=== PATIENT | male | born 1980 | race Caucasian/White ===

== ENCOUNTER 2018-02-14 14:37 | Inpatient (IN) ==
[2018-02-14 16:10] LABS: Basophils # 0.1 10*3/uL (0.0-0.2); Basophils % 0.5 % (0.0-0.8); Eosinophils % 0.2 % (0.00-10.9); Hematocrit 43.2 VOL% (42.0-52.0); Hemoglobin 15.3 GM/DL (14.0-18.0); Immature Granulocytes % 0.8 %; Immature Granulocytes Absolute 0.09 #; Lymphocytes # 3.3 10*3/uL (1.4-4.0); Mean Corpuscular HGB Conc 35.4 GM/DL (32-36); Mean Corpuscular Hemoglobin 32 PG (27-34); Mean Corpuscular Volume 90.8 FL (87-102); Mean Platelet Volume 9.2 FL (9.6-12.0); Monocytes # 0.8 10*3/uL (0.11-0.8); Neutrophils # 6.7 10*3/uL (1.4-7.4); Neutrophils % 61.5 % (38.7-73.9); Platelet Count 356 T/CUMM (130-400); Red Blood Count 4.76 MC/CUMM (3.8-5.5)
[2018-02-14 16:25] LABS: Albumin 3.9 G/DL (3.4-5.0); Bilirubin,Total 0.5 MG/DL (0.2-1.0); Calcium 9.4 MG/DL (8.5-10.1); Osmolality,Calculated 280.4 MOS/KG (273-304); Total Protein 7.8 G/DL (6.4-8.3)
[2018-02-14] MEDS ORDERED: ONDANSETRON 4 MG/2 ML VIAL IV PRN (16:34)
[2018-02-14] MEDS ORDERED: DEXTROSE 50% 25 GM/50 ML VIAL IV PRN (16:34)
[2018-02-14] MEDS ORDERED: GLUCAGON 1 MG VIAL IM PRN (16:34)
[2018-02-14] MEDS ORDERED: LORazepam 2 MG/1 ML VIAL IV STA (16:38)
[2018-02-14] MEDS ORDERED: POTASSIUM CHLORIDE 20 MEQ TABLET PO STA (16:48)
[2018-02-14 17:24] LABS: Apearance,Urine CLEAR (Clear); Bilirubin,Urine Negative (Negative); Blood, Urine Negative (Negative); Glucose,Urine (UA) Negative (Negative); Hyaline Casts,Urine 1 /LPF (0-3); Ketones,Urine Negative (Negative); Mucus,Urine Occasional /LPF (Occasional); Nitrite,Urine Negative (Negative); Protein,Urine Negative; RBC,Urine 2 /HPF (0-4); Squamous Epithelial Cell,Urine Occasional /HPF (0-10); Urine Color Yellow (Yellow); Urine Specific Gravity 1.015 (1.001-1.035); Urine Urobilinogen < 2.0 EU/DL (0.2-1.0); WBC,Urine 2 /HPF (0-6)
[2018-02-14 17:29] LABS: Folate > 24.0 NG/ML (5.4-24.0); Vitamin B12 769 PG/ML (211-911)
[2018-02-14] MEDS ORDERED: LORazepam 2 MG/1 ML VIAL ONE (18:40)
[2018-02-14] MEDS ORDERED: POTASSIUM CHLORIDE 20 MEQ TABLET PO ONE (18:40)
[2018-02-14] MEDS: metFORMIN 500 MG TABLET PO SCH (20:57)
[2018-02-14] MEDS: PIOGLITAZONE 15 MG TABLET PO SCH (20:58)
[2018-02-14] MEDS: glipiZIDE 10 MG TABLET PO SCH (20:58)
[2018-02-14] MEDS: GABAPENTIN 300 MG CAPSULE PO SCH (20:59)
[2018-02-14] MEDS: CARVEDILOL 25 MG TABLET PO SCH (20:59)
[2018-02-14] MEDS: OXcarbazepine 300 MG TABLET PO SCH (21:00)
[2018-02-14] MEDS ORDERED: HydrOXYzine PAMOATE 50 MG CAPSULE PO SCH (21:00)
[2018-02-14] MEDS: ENOXAPARIN 40 MG/0.4 ML SYRINGE SUBCUT SCH (21:52)
[2018-02-14] MEDS: ASPIRIN 325 MG TABLET PO SCH (21:53)
[2018-02-14] MEDS: POTASSIUM CHLORIDE 20 MEQ TABLET PO SCH (21:53)
[2018-02-14] MEDS: ZALEPLON 5 MG CAPSULE PO SCH (21:53)
[2018-02-15] MEDS: POTASSIUM CHLORIDE 20 MEQ TABLET PO SCH (01:24)
[2018-02-15] MEDS: HydrOXYzine PAMOATE 25 MG CAPSULE PO PRN ×2 (01:26→20:35)
[2018-02-15 06:46] LABS: Basophils % 0.4 % (0.0-0.8); Eosinophils % 0.4 % (0.00-10.9); Hematocrit 40.8 VOL% (42.0-52.0); Immature Granulocytes % 0.6 %; Immature Granulocytes Absolute 0.06 #; Lymphocytes # 3.8 10*3/uL (1.4-4.0); Lymphocytes % 39.9 % (21.2-54.2); Mean Corpuscular HGB Conc 34.3 GM/DL (32-36); Mean Corpuscular Hemoglobin 32 PG (27-34); Mean Corpuscular Volume 94.2 FL (87-102); Mean Platelet Volume 9.3 FL (9.6-12.0); Monocytes # 0.8 10*3/uL (0.11-0.8); Neutrophils # 4.8 10*3/uL (1.4-7.4); Neutrophils % 50.7 % (38.7-73.9); Platelet Count 291 T/CUMM (130-400); Red Blood Count 4.33 MC/CUMM (3.8-5.5); Red Cell Distribution Width 13.2 % (9.3-17.3); White Blood Count 9.5 T/CUMM (4-12)
[2018-02-15 07:17] LABS: Osmolality,Calculated 281.3 MOS/KG (273-304); Potassium 3.4 MMOL/L (3.5-5.1); Risk Ratio 4.67; Thyroid Stimulating Hormone 1.34 uIU/ml (0.358-3.74)
[2018-02-15] MEDS: ASPIRIN 325 MG TABLET PO SCH (09:17)
[2018-02-15] MEDS: LOSARTAN/HCTZ 50-12.5 MG TABLET PO SCH (09:17)
[2018-02-15] MEDS: CARVEDILOL 25 MG TABLET PO SCH ×2 (09:18→20:34)
[2018-02-15] MEDS: OXcarbazepine 300 MG TABLET PO SCH ×2 (09:18→20:35)
[2018-02-15] MEDS: glipiZIDE 10 MG TABLET PO SCH ×2 (09:18→17:07)
[2018-02-15] MEDS: GABAPENTIN 300 MG CAPSULE PO SCH ×2 (09:18→20:34)
[2018-02-15] MEDS: metFORMIN 500 MG TABLET PO SCH ×2 (09:19→17:07)
[2018-02-15] MEDS: PIOGLITAZONE 15 MG TABLET PO SCH ×2 (09:19→20:34)
[2018-02-15] MEDS: ZALEPLON 5 MG CAPSULE PO SCH (20:34)
[2018-02-15] MEDS: ENOXAPARIN 40 MG/0.4 ML SYRINGE SUBCUT SCH (20:34)
[2018-02-16 06:35] LABS: Basophils % 0.5 % (0.0-0.8); Eosinophils % 0.5 % (0.00-10.9); Hematocrit 40.3 VOL% (42.0-52.0); Hemoglobin 14.4 GM/DL (14.0-18.0); Immature Granulocytes % 0.8 %; Immature Granulocytes Absolute 0.07 #; Lymphocytes # 2.8 10*3/uL (1.4-4.0); Lymphocytes % 33.5 % (21.2-54.2); Mean Corpuscular HGB Conc 35.7 GM/DL (32-36); Mean Corpuscular Hemoglobin 32 PG (27-34); Mean Corpuscular Volume 90.6 FL (87-102); Mean Platelet Volume 9.1 FL (9.6-12.0); Monocytes # 0.8 10*3/uL (0.11-0.8); Monocytes % 9.4 % (1.7-12.7); Neutrophils # 4.7 10*3/uL (1.4-7.4); Neutrophils % 55.3 % (38.7-73.9); Platelet Count 273 T/CUMM (130-400); Red Blood Count 4.45 MC/CUMM (3.8-5.5); Red Cell Distribution Width 12.9 % (9.3-17.3); White Blood Count 8.4 T/CUMM (4-12)
[2018-02-16 07:03] LABS: Calcium 8.7 MG/DL (8.5-10.1); Osmolality,Calculated 279.4 MOS/KG (273-304); Potassium 2.9 MMOL/L (3.5-5.1)
[2018-02-16] MEDS: LOSARTAN/HCTZ 50-12.5 MG TABLET PO SCH (10:34)
[2018-02-16] MEDS: ASPIRIN 325 MG TABLET PO SCH (10:34)
[2018-02-16] MEDS: OXcarbazepine 300 MG TABLET PO SCH ×2 (10:34→20:54)
[2018-02-16] MEDS: metFORMIN 500 MG TABLET PO SCH ×2 (10:34→18:07)
[2018-02-16] MEDS: CARVEDILOL 25 MG TABLET PO SCH ×2 (10:35→20:55)
[2018-02-16] MEDS: PIOGLITAZONE 15 MG TABLET PO SCH ×2 (10:35→20:55)
[2018-02-16] MEDS: GABAPENTIN 300 MG CAPSULE PO SCH ×2 (10:35→20:54)
[2018-02-16] MEDS: glipiZIDE 10 MG TABLET PO SCH ×2 (10:41→18:06)
[2018-02-16] MEDS ORDERED: NYSTATIN CREAM 15 GM TUBE TOP PRN (18:02)
[2018-02-16] MEDS: POTASSIUM CHLORIDE 20 MEQ TABLET PO SCH ×2 (18:07→20:54)
[2018-02-16 18:19] LABS: Basophils # 0.1 10*3/uL (0.0-0.2); Basophils % 0.6 % (0.0-0.8); Eosinophils % 0.3 % (0.00-10.9); Hematocrit 43.7 VOL% (42.0-52.0); Hemoglobin 15.7 GM/DL (14.0-18.0); Immature Granulocytes % 0.6 %; Immature Granulocytes Absolute 0.07 #; Lymphocytes # 3.3 10*3/uL (1.4-4.0); Lymphocytes % 26.9 % (21.2-54.2); Mean Corpuscular HGB Conc 35.9 GM/DL (32-36); Mean Corpuscular Hemoglobin 32 PG (27-34); Mean Corpuscular Volume 89.5 FL (87-102); Mean Platelet Volume 8.9 FL (9.6-12.0); Monocytes % 8.1 % (1.7-12.7); Neutrophils # 7.8 10*3/uL (1.4-7.4); Neutrophils % 63.5 % (38.7-73.9); Platelet Count 393 T/CUMM (130-400); Red Blood Count 4.88 MC/CUMM (3.8-5.5); White Blood Count 12.2 T/CUMM (4-12)
[2018-02-16 18:43] LABS: Albumin 3.9 G/DL (3.4-5.0); Bilirubin,Total 0.4 MG/DL (0.2-1.0); Calcium 9.3 MG/DL (8.5-10.1); Osmolality,Calculated 275.7 MOS/KG (273-304); Potassium 3.1 MMOL/L (3.5-5.1); Total Protein 7.4 G/DL (6.4-8.3)
[2018-02-16] MEDS: ZALEPLON 5 MG CAPSULE PO SCH (20:54)
[2018-02-16] MEDS: ENOXAPARIN 40 MG/0.4 ML SYRINGE SUBCUT SCH (20:54)
[2018-02-17] MEDS: POTASSIUM CHLORIDE 20 MEQ TABLET PO SCH (02:23)
[2018-02-17] MEDS ORDERED: POTASSIUM CHLORIDE 20 MEQ TABLET PO SCH (02:30)
[2018-02-17] MEDS: HydrOXYzine PAMOATE 25 MG CAPSULE PO PRN ×2 (03:01→15:58)
[2018-02-17] MEDS ORDERED: GABAPENTIN 300 MG CAPSULE PO ONE (04:01)
[2018-02-17 06:50] LABS: Calcium 8.8 MG/DL (8.5-10.1); Osmolality,Calculated 280.4 MOS/KG (273-304); Potassium 3.4 MMOL/L (3.5-5.1)
[2018-02-17] MEDS: LOSARTAN/HCTZ 50-12.5 MG TABLET PO SCH (09:04)
[2018-02-17] MEDS: OXcarbazepine 300 MG TABLET PO SCH ×2 (09:05→20:40)
[2018-02-17] MEDS: glipiZIDE 10 MG TABLET PO SCH ×2 (09:05→15:59)
[2018-02-17] MEDS: metFORMIN 500 MG TABLET PO SCH ×2 (09:05→15:59)
[2018-02-17] MEDS: ASPIRIN 325 MG TABLET PO SCH (09:05)
[2018-02-17] MEDS: FLUCONAZOLE 100 MG TABLET PO SCH (09:06)
[2018-02-17] MEDS: PIOGLITAZONE 15 MG TABLET PO SCH ×2 (09:06→20:40)
[2018-02-17] MEDS: GABAPENTIN 300 MG CAPSULE PO SCH ×2 (09:06→20:40)
[2018-02-17] MEDS: CARVEDILOL 25 MG TABLET PO SCH ×2 (09:06→20:40)
[2018-02-17] MEDS: TEMAZEPAM 15 MG CAPSULE PO PRN (20:40)
[2018-02-18 05:48] LABS: Basophils % 0.4 % (0.0-0.8); Eosinophils % 0.2 % (0.00-10.9); Hematocrit 39.2 VOL% (42.0-52.0); Hemoglobin 14.2 GM/DL (14.0-18.0); Immature Granulocytes % 0.5 %; Immature Granulocytes Absolute 0.04 #; Lymphocytes # 2.7 10*3/uL (1.4-4.0); Lymphocytes % 33.4 % (21.2-54.2); Mean Corpuscular HGB Conc 36.2 GM/DL (32-36); Mean Corpuscular Hemoglobin 32 PG (27-34); Mean Corpuscular Volume 89.1 FL (87-102); Mean Platelet Volume 9.3 FL (9.6-12.0); Monocytes # 0.7 10*3/uL (0.11-0.8); Monocytes % 8.6 % (1.7-12.7); Neutrophils # 4.6 10*3/uL (1.4-7.4); Neutrophils % 56.9 % (38.7-73.9); Platelet Count 293 T/CUMM (130-400); Red Cell Distribution Width 13.2 % (9.3-17.3); White Blood Count 8.1 T/CUMM (4-12)
[2018-02-18 06:33] LABS: Albumin 3.6 G/DL (3.4-5.0); Bilirubin,Total 0.6 MG/DL (0.2-1.0); Osmolality,Calculated 278.4 MOS/KG (273-304); Potassium 3.3 MMOL/L (3.5-5.1); Total Protein 6.7 G/DL (6.4-8.3)
[2018-02-18] MEDS ORDERED: POTASSIUM CHLORIDE RIDER 10 MEQ in PREMIX 1 EACH IV PRN (08:28)
[2018-02-18] MEDS: CARVEDILOL 25 MG TABLET PO SCH ×2 (08:32→20:24)
[2018-02-18] MEDS: OXcarbazepine 300 MG TABLET PO SCH ×2 (08:32→20:24)
[2018-02-18] MEDS: ASPIRIN 325 MG TABLET PO SCH (08:32)
[2018-02-18] MEDS: LOSARTAN/HCTZ 50-12.5 MG TABLET PO SCH (08:32)
[2018-02-18] MEDS: PIOGLITAZONE 15 MG TABLET PO SCH ×2 (08:33→20:24)
[2018-02-18] MEDS: metFORMIN 500 MG TABLET PO SCH ×2 (08:33→17:03)
[2018-02-18] MEDS: GABAPENTIN 300 MG CAPSULE PO SCH ×2 (08:33→20:24)
[2018-02-18] MEDS: FLUCONAZOLE 100 MG TABLET PO SCH (08:33)
[2018-02-18] MEDS: glipiZIDE 10 MG TABLET PO SCH ×2 (08:38→17:03)
[2018-02-18] MEDS: POTASSIUM CHLORIDE 20 MEQ TABLET PO PRN ×3 (09:55→14:57)
[2018-02-18] MEDS: TEMAZEPAM 15 MG CAPSULE PO PRN (20:24)
[2018-02-19 05:27] LABS: Basophils % 0.4 % (0.0-0.8); Eosinophils % 0.5 % (0.00-10.9); Hematocrit 39.8 VOL% (42.0-52.0); Hemoglobin 14.3 GM/DL (14.0-18.0); Immature Granulocytes % 0.6 %; Immature Granulocytes Absolute 0.05 #; Lymphocytes # 3.3 10*3/uL (1.4-4.0); Lymphocytes % 39.5 % (21.2-54.2); Mean Corpuscular HGB Conc 35.9 GM/DL (32-36); Mean Corpuscular Hemoglobin 32 PG (27-34); Mean Corpuscular Volume 89.8 FL (87-102); Mean Platelet Volume 9.3 FL (9.6-12.0); Monocytes # 0.7 10*3/uL (0.11-0.8); Monocytes % 8.3 % (1.7-12.7); Neutrophils # 4.3 10*3/uL (1.4-7.4); Neutrophils % 50.7 % (38.7-73.9); Platelet Count 269 T/CUMM (130-400); Red Blood Count 4.43 MC/CUMM (3.8-5.5); Red Cell Distribution Width 13.3 % (9.3-17.3); White Blood Count 8.4 T/CUMM (4-12)
[2018-02-19 06:04] LABS: Albumin 3.5 G/DL (3.4-5.0); Bilirubin,Total 0.6 MG/DL (0.2-1.0); Osmolality,Calculated 276.4 MOS/KG (273-304); Potassium 3.4 MMOL/L (3.5-5.1); Total Protein 6.7 G/DL (6.4-8.3)
[2018-02-19] MEDS: CARVEDILOL 25 MG TABLET PO SCH ×2 (08:18→20:27)
[2018-02-19] MEDS: GABAPENTIN 300 MG CAPSULE PO SCH ×2 (08:18→20:27)
[2018-02-19] MEDS: FLUCONAZOLE 100 MG TABLET PO SCH (08:18)
[2018-02-19] MEDS: PIOGLITAZONE 15 MG TABLET PO SCH ×2 (08:18→20:28)
[2018-02-19] MEDS: LOSARTAN/HCTZ 50-12.5 MG TABLET PO SCH (08:18)
[2018-02-19] MEDS: OXcarbazepine 300 MG TABLET PO SCH ×2 (08:18→20:27)
[2018-02-19] MEDS: metFORMIN 500 MG TABLET PO SCH ×2 (08:18→16:48)
[2018-02-19] MEDS: glipiZIDE 10 MG TABLET PO SCH ×2 (08:21→16:48)
[2018-02-19] MEDS: ASPIRIN 325 MG TABLET PO SCH (08:22)
[2018-02-19 10:22] LABS: Lymphocytes,CSF 3 %; Monocytes,CSF 6 %; Neutrophils,CSF 92 %; Red Blood Cell,CSF 239 C/CUMM; White Blood Cell,CSF 9 C/CUMM
[2018-02-19 10:23] LABS: Appearance,CSF Hazy
[2018-02-19] MEDS: TEMAZEPAM 15 MG CAPSULE PO PRN (20:26)
[2018-02-20] MEDS: HydrOXYzine PAMOATE 25 MG CAPSULE PO PRN (00:56)
[2018-02-20 05:57] LABS: Basophils # 0.1 10*3/uL (0.0-0.2); Basophils % 0.5 % (0.0-0.8); Eosinophils % 0.3 % (0.00-10.9); Hematocrit 39.7 VOL% (42.0-52.0); Hemoglobin 14.1 GM/DL (14.0-18.0); Immature Granulocytes % 0.6 %; Immature Granulocytes Absolute 0.06 #; Lymphocytes # 2.4 10*3/uL (1.4-4.0); Lymphocytes % 25.1 % (21.2-54.2); Mean Corpuscular HGB Conc 35.5 GM/DL (32-36); Mean Corpuscular Hemoglobin 32 PG (27-34); Mean Corpuscular Volume 90.8 FL (87-102); Mean Platelet Volume 9.3 FL (9.6-12.0); Monocytes % 9.9 % (1.7-12.7); Neutrophils # 6.1 10*3/uL (1.4-7.4); Neutrophils % 63.6 % (38.7-73.9); Platelet Count 258 T/CUMM (130-400); Red Blood Count 4.37 MC/CUMM (3.8-5.5); Red Cell Distribution Width 13.4 % (9.3-17.3); White Blood Count 9.6 T/CUMM (4-12)
[2018-02-20 06:28] LABS: Calcium 9.5 MG/DL (8.5-10.1); Osmolality,Calculated 277.5 MOS/KG (273-304); Potassium 3.7 MMOL/L (3.5-5.1)
[2018-02-20] MEDS: OXcarbazepine 300 MG TABLET PO SCH (09:18)
[2018-02-20] MEDS: LOSARTAN/HCTZ 50-12.5 MG TABLET PO SCH (09:18)
[2018-02-20] MEDS: ASPIRIN 325 MG TABLET PO SCH (09:18)
[2018-02-20] MEDS: CARVEDILOL 25 MG TABLET PO SCH (09:19)
[2018-02-20] MEDS: metFORMIN 500 MG TABLET PO SCH (09:19)
[2018-02-20] MEDS: glipiZIDE 10 MG TABLET PO SCH (09:19)
[2018-02-20] MEDS: FLUCONAZOLE 100 MG TABLET PO SCH (09:19)
[2018-02-20] MEDS: PIOGLITAZONE 15 MG TABLET PO SCH (09:19)
[2018-02-20] MEDS: GABAPENTIN 300 MG CAPSULE PO SCH (09:19)
[2018-02-20 12:07] VITALS: BP 124/88
== END 2018-02-20 15:55 | disposition home or self-care (01) | DRG 74 ==
LOC: N.ED 14:37 → N.EDINP 14:37 → N.2E 19:04 → SUATTDRO 02-16 15:22
PROVIDERS: ADMIT Internal Medicine; ATTEND Internal Medicine